=== PATIENT | female | born 1990 | race Hispanic/Latino ===

== ENCOUNTER 2021-04-05 16:45 | Emergency (ER) | payer MEDICAID ==
[~2021-04-05] VITALS: Ht 162.6 cm; Wt 83.0 kg
[2021-04-05] MEDS ORDERED: ACET-66 PO (19:46)
[2021-04-05] MEDS ORDERED: DIPH25 PO (19:46)
[2021-04-05 19:57] VITALS: BP 120/82
== END 2021-04-05 20:00 | disposition home or self-care (01) ==
LOC: EDH 16:45
DX: O98.513 Other viral diseases complicating pregnancy, third trimester (principal); U07.1 COVID-19; Z3A.34 34 weeks gestation of pregnancy
CPT/HCPCS: 87635; 87804 ×2; 99283; C9803

== ENCOUNTER 2021-09-30 10:14 | Emergency (ER) | payer MEDICAID ==
[~2021-09-30] VITALS: Ht 162.6 cm; Wt 81.6 kg
[~2021-09-30 10:14] MED LIST: ACET-66 PO; DIPH25 PO
[2021-09-30 10:15] VITALS: BP 122/92
[2021-09-30] MEDS ORDERED: PRED5SOL PO (10:27)
[2021-09-30] MEDS ORDERED: ACET-2163 PO (10:27)
== END 2021-09-30 10:38 | disposition home or self-care (01) ==
LOC: EDH 10:14
DX: J02.9 Acute pharyngitis, unspecified (principal)

== ENCOUNTER → 2022-07-16 | Outpatient (CLI) | payer OTHER, MEDICAID ==
[~2022-07-16] MED LIST changes: -ACET-66 PO; +BENZ200C53 PO; -DIPH25 PO; +DOXY100T2 PO; +OMEP40CA21 PO; +TRAM50TA4 PO
== END | disposition home or self-care (01) ==
LOC: WHH 13:40
PROVIDERS: ATTEND Family Medicine
DX: T81.89XA Other complications of procedures, not elsewhere classified, initial encounter (principal); S31.104A Unspecified open wound of abdominal wall, left lower quadrant without penetration into peritoneal cavity, initial encounter; S71.102A Unspecified open wound, left thigh, initial encounter; L02.211 Cutaneous abscess of abdominal wall; L02.416 Cutaneous abscess of left lower limb; Z79.899 Other long term (current) drug therapy; W57.XXXA Bitten or stung by nonvenomous insect and other nonvenomous arthropods, initial encounter; Y93.89 Activity, other specified; Y92.89 Other specified places as the place of occurrence of the external cause; Y99.8 Other external cause status; Y83.8 Other surgical procedures as the cause of abnormal reaction of the patient, or of later complication, without mention of misadventure at the time of the procedure; Y92.238 Other place in hospital as the place of occurrence of the external cause
CPT/HCPCS: 11042; A4450

== ENCOUNTER → 2022-07-23 | Outpatient (CLI) | payer OTHER, MEDICAID ==
[~2022-07-23] MED LIST changes: +LIDOCAINE HCL 4% LTA SOL 4 ML VIAL TP ONE
== END | disposition home or self-care (01) ==
LOC: WHH 10:42
PROVIDERS: ATTEND Nurse Practitioner Family
DX: T81.89XD Other complications of procedures, not elsewhere classified, subsequent encounter (principal); S31.104D Unspecified open wound of abdominal wall, left lower quadrant without penetration into peritoneal cavity, subsequent encounter; S71.102D Unspecified open wound, left thigh, subsequent encounter; L02.211 Cutaneous abscess of abdominal wall; L02.416 Cutaneous abscess of left lower limb; Z79.899 Other long term (current) drug therapy; W57.XXXD Bitten or stung by nonvenomous insect and other nonvenomous arthropods, subsequent encounter; Y83.8 Other surgical procedures as the cause of abnormal reaction of the patient, or of later complication, without mention of misadventure at the time of the procedure
CPT/HCPCS: 11042; A6212

== ENCOUNTER → 2022-07-30 | Outpatient (CLI) | payer OTHER, MEDICAID ==
[~2022-07-30] MED LIST changes: -LIDOCAINE HCL 4% LTA SOL 4 ML VIAL TP ONE
== END | disposition home or self-care (01) ==
LOC: WHH 11:09
PROVIDERS: ATTEND Nurse Practitioner Family
DX: T81.89XD Other complications of procedures, not elsewhere classified, subsequent encounter (principal); S31.104D Unspecified open wound of abdominal wall, left lower quadrant without penetration into peritoneal cavity, subsequent encounter; S71.102D Unspecified open wound, left thigh, subsequent encounter; L02.211 Cutaneous abscess of abdominal wall; L02.416 Cutaneous abscess of left lower limb; I10 Essential (primary) hypertension; Z79.899 Other long term (current) drug therapy; W57.XXXD Bitten or stung by nonvenomous insect and other nonvenomous arthropods, subsequent encounter; Y83.8 Other surgical procedures as the cause of abnormal reaction of the patient, or of later complication, without mention of misadventure at the time of the procedure
CPT/HCPCS: 99214

== ENCOUNTER → 2022-08-07 | Outpatient (CLI) | payer OTHER, MEDICAID | END | disposition home or self-care (01) | LOC: WHH 08:59 | PROVIDERS: ATTEND Nurse Practitioner Family | DX: T81.89XD Other complications of procedures, not elsewhere classified, subsequent encounter (principal); S31.104D Unspecified open wound of abdominal wall, left lower quadrant without penetration into peritoneal cavity, subsequent encounter; S71.102D Unspecified open wound, left thigh, subsequent encounter; L02.211 Cutaneous abscess of abdominal wall; L02.416 Cutaneous abscess of left lower limb; I10 Essential (primary) hypertension; E66.9 Obesity, unspecified; Z68.32 Body mass index [BMI] 32.0-32.9, adult; Z79.899 Other long term (current) drug therapy; W57.XXXD Bitten or stung by nonvenomous insect and other nonvenomous arthropods, subsequent encounter; Y83.8 Other surgical procedures as the cause of abnormal reaction of the patient, or of later complication, without mention of misadventure at the time of the procedure | CPT/HCPCS: 99214 ==

== ENCOUNTER 2022-09-17 09:16 | Emergency (ER) | payer MEDICAID, OTHER ==
[~2022-09-17] VITALS: Ht 162.6 cm; Wt 86.2 kg
[2022-09-17 09:22] VITALS: BP 124/83
[2022-09-17] MEDS ORDERED: SULF1TAB42 PO (09:43)
[2022-09-17] MEDS ORDERED: SULFAMETHOX-TMP DS 800/160 TAB ONE (09:45)
[2022-09-17] MEDS ORDERED: SULFAMETHOX-TMP DS 800/160 TAB PO SCH (10:00)
== END 2022-09-17 10:24 | disposition home or self-care (01) ==
LOC: EDH 09:16
DX: L03.116 Cellulitis of left lower limb (principal); Z79.899 Other long term (current) drug therapy